=== PATIENT | female | born 1955 | race African-American/Black ===

== ENCOUNTER 2019-10-10 09:25 | Day surgery (SDC) | payer OTHER ==
[2019-10-09 10:18] VITALS: BMI 25.9
[2019-10-10 11:24] VITALS: TEMP 98.2
[2019-10-10 12:31] VITALS: BP 109/63; PULSE 65
--- NOTE | 2019-10-11 16:44 | PATH ---
Surgical Pathology Report Patient Name: FRED PRITCHARD [facility]. Rec. #: [id number] /Age/Gender: 1955 (Age: 64) / F Account: [id number] Location: [facility]-ENDOSCOPY Taken: 10/10/2019 Received: 10/10/2019 Reported: 10/11/2019 Physicians: Yasmany Munoz D.O. Specimen(s) Received A: TRANSVERSE COLON, POLYP B: RECTAL POLYP Clinical History History of colon polyps Postoperative diagnosis: Diverticulosis, colon polyp Final Diagnosis A. TRANSVERSE COLON, POLYP, BIOPSY: POLYPOID COLONIC MUCOSA WITHOUT SIGNIFICANT PATHOLOGIC FINDINGS. B. RECTAL POLYP, BIOPSY: HYPERPLASTIC POLYP. Electronically Signed Claudette Modi M.D. Gross Description A. Received in formalin, labeled "biopsy transverse colon polyp" is a palomares, irregular portion of soft tissue measuring 0.4 cm. in greatest dimension. The specimen is submitted in toto in one cassette. B. Received in formalin, labeled "biopsy rectal polyp" is a palomares, irregular portion of soft tissue measuring 0.4 cm. in greatest dimension. The specimen is submitted in toto in one cassette. DL/10/10/2019 saudi10/10/2019
== END 2019-10-10 12:00 | disposition home or self-care (01) ==
LOC: JASU-ENDO 09:25
PROVIDERS: ATTEND Internal Medicine Gastroenterology
PROC: 0DBL8ZX Excision of Transverse Colon, Via Natural or Artificial Opening Endoscopic, Diagnostic (ICD-10-PCS; 2019-10-10)
PROC: 0DBP8ZX Excision of Rectum, Via Natural or Artificial Opening Endoscopic, Diagnostic (ICD-10-PCS; principal; 2019-10-10 09:45)
DX: Z12.11 Encounter for screening for malignant neoplasm of colon (principal); K57.30 Diverticulosis of large intestine without perforation or abscess without bleeding; K64.8 Other hemorrhoids; K62.1 Rectal polyp; K63.5 Polyp of colon; D12.3 Benign neoplasm of transverse colon
CPT/HCPCS: 82962; 88305-TC